=== PATIENT | male | born 1955 | race Caucasian/White ===

== ENCOUNTER 2016-11-10 03:16 | Emergency (ER) | payer OTHER ==
[~2016-11-10] VITALS: Ht 177.8 cm; Wt 73.0 kg
[2016-11-10] MEDS ORDERED: CEFAZOLIN 1 GM in IV D5W 50 ML IV ONE (03:30)
[2016-11-10] MEDS ORDERED: TDAP [DIPH/PERTUSSIS/TET] 0.5 ML VIAL IM ONE ×2 (03:30→03:32)
[2016-11-10] MEDS ORDERED: IV SET PRIMARY 1 EA INFUS.SET MC ONE (03:31)
[2016-11-10] MEDS ORDERED: CEFAZOLIN 1 GM ONE (03:31)
[2016-11-10] MEDS ORDERED: IV D5W 50 ML IV ONE (03:32)
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
[2016-11-10 03:58] LABS: BASOPHILS % (AUTO) 0.2 % (0.0-2.0); EOSINOPHILS # (AUTO) 0.1 /CMM (0.0-0.7); EOSINOPHILS % (AUTO) 1.3 % (0.0-6.0); HEMATOCRIT 41 % (39-51); HEMOGLOBIN 13.6 g/dL (13.5-17.5); LYMPHOCYTES # (AUTO) 2.7 /CMM (0.8-4.8); MEAN CORPUSCULAR HEMOGLOBIN 32 PG (26.0-33.0); MEAN CORPUSCULAR HGB CONC 33 g/dl (31.0-36.0); MEAN CORPUSCULAR VOLUME 95 fL (80-96); MONOCYTES # (AUTO) 0.6 /CMM (0.1-1.30); MONOCYTES % (AUTO) 6.8 % (2.0-12.0); NEUTROPHILS # (AUTO) 5.9 /CMM (1.8-8.9); NEUTROPHILS % (AUTO) 62.7 % (43.0-81.0); PLATELET COUNT (AUTO) 347 /CMM (150-450); RED BLOOD CELL COUNT(AUTO) 4.33 MIL/uL (4.5-6.0); WHITE BLOOD COUNT (AUTO) 9.4 K/uL (4.3-11.0)
[2016-11-10 04:11] LABS: CALCIUM, SERUM 8.1 mg/dL (8.5-10.1); CREATININE 0.8 mg/dL (0.6-1.3); POTASSIUM 3.8 mmol/L (3.5-5.1)
[2016-11-10 04:18] LABS: ALBUMIN 3.2 g/dL (3.4-5.0); BILIRUBIN,TOTAL 0.1 mg/dL (0.2-1.0); TOTAL PROTEIN, SERUM 6.6 g/dL (6.4-8.2)
[2016-11-10 04:20] LABS: INR 1.12 (0.87-1.13); PROTHROMBIN TIME 12.1 SECS (9.5-12.7)
--- NOTE | 2016-11-10 04:38 | NUR ---
XRAY AT BEDSIDE
--- NOTE | 2016-11-10 05:01 | NUR ---
PT TO CT.
--- NOTE | 2016-11-10 06:28 | NUR ---
DR. MCCLENDON AT BEDSIDE SPEAKING TO PT REGARDING POC. PER MD PLACED STERI STRIPS TO BRIDGE OF NOSE.
--- NOTE | 2016-11-10 07:10 | NUR ---
REPORT GIVEN TO TREVON MARMOLEJO FOR [facility].
--- NOTE | 2016-11-10 07:21 | NUR ---
RECEIVED PATIENT ON BED, ASLEEP. NO ACUTE DISTRESS. VSS
--- NOTE | 2016-11-10 08:58 | NUR ---
[facility], ETA 30 MIN
--- NOTE | 2016-11-10 09:21 | NUR ---
WOUND CARE DONE
[2016-11-10 09:30] VITALS: BP 114/65
--- NOTE | 2016-11-10 09:36 | NUR ---
IV removed. Catheter intact and site benign. Pressure and 4x4 applied to site. No bleeding noted. Patient discharged to home in stable condition. Written and verbal after care instructions given. Patient verbalizes understanding of instruction. Wound dressing intact and dry. Pt picked up by ambulance.
== END 2016-11-10 09:38 | disposition home or self-care (01) ==
LOC: ER 03:17
DX: S01.21XA Laceration without foreign body of nose, initial encounter (principal); S00.83XA Contusion of other part of head, initial encounter; F10.129 Alcohol abuse with intoxication, unspecified; E78.00 Pure hypercholesterolemia, unspecified; Z88.6 Allergy status to analgesic agent; Z95.0 Presence of cardiac pacemaker; W18.39XA Other fall on same level, initial encounter; Y93.9 Activity, unspecified; Y92.89 Other specified places as the place of occurrence of the external cause; Y99.9 Unspecified external cause status
CPT/HCPCS: 36415; 70450; 70486; 71010; 72125; 73030; 80048; 80076; 85025; 85730; 90471; 90715; 93005; 96365; 99285; A4606; G0480; J0690; J7060; Z7610